=== PATIENT | male | born 1995 ===

== ENCOUNTER → 2019-03-28 | Outpatient (REF) | payer SELFPAY ==
[2019-03-28 15:56] LABS: PLATELET COUNT, AUTOMATED 221 K/uL (150-450)
== END ==
PROVIDERS: ATTEND Family Medicine
DX: R10.9 Unspecified abdominal pain (principal)
CPT/HCPCS: 82040; 82150; 82247; 82310; 82374; 82435; 82565; 82947; 83690; 84075; 84132; 84155; 84295; 84450; 84460; 84520; 85025; 86140